=== PATIENT | female | born 1985 | race Caucasian/White ===

== ENCOUNTER 2021-08-16 12:39 | Emergency (ER) | payer OTHER, SELFPAY ==
[2021-08-16 12:49] VITALS: BP 116/70; PULSE 65; RESP 16; TEMP 37; O2SAT 99
--- NOTE | 2021-08-16 13:18 | ED.SKABFB ---
HPI - Skin/Abscess/Foreign Bdy General Chief complaint: Skin/Abscess/Foreign Body Stated complaint: pos breast infection Time Seen by Provider: 08/16/21 12:56 Source: patient and RN notes reviewed Mode of arrival: ambulatory Limitations: no limitations History of Present Illness HPI narrative: Patient presents today complaining of green/yellow discharge from the right nipple since 430 this morning. She was feeling some pressure from the nipple at that time, squeezed it and had a moderate amount of discharge coming from the nipple. She did have some release of the pressure after expression of this discharge. She does have some decreased sensation from the nipple due to breast reduction surgery and previous nipple piercings. Patient gave 2 months ago to a stillborn baby. She did not have any issues with mastitis following. History of MRSA. Related Data Home Medications Medication Instructions Recorded Confirmed Zoloft 08/16/21 folic acid 08/16/21 Allergies Allergy/AdvReac Type Severity Reaction Status Date / Time No Known Allergies Allergy Verified 08/16/21 12:57 Review of Systems Review of Systems: CONSTITUTIONAL: Denies body aches, fever, chills, or sweats. EYES: Denies visual changes, redness, or discharge. ENT: Denies rhinorrhea, congestion, sore throat, or otalgia. CARDIOVASCULAR: Denies chest pain, palpitations, or edema. RESPIRATORY: Denies cough or dyspnea. GASTROINTESTINAL: Denies abdominal pain, nausea, vomiting, or diarrhea. GENITOURINARY: Denies dysuria or hematuria. SKIN: Denies rash, itching, or wounds.+ Nipple discharge MUSCULOSKELETAL: Denies back pain, joint pain, or myalgia. NEUROLOGIC: Denies headache, numbness, tingling, or weakness. PSYCH: Denies depression or anxiety. [facility] Surgical History Surgical History (Updated 08/16/21 @ 13:21 by Whit Nelson, PRODUCTION EXPERT, ) H/O bilateral breast reduction surgery Comments At time of signature, I have reviewed and agree with nursing past medical, surgical, social and family history unless otherwise noted. Please see nursing chart for further information. There is no relevant family history pertinent to the presenting complaint Exam Narrative: GENERAL: Well-appearing, well-nourished, and in no acute distress. HEAD: Normocephalic, atraumatic. EYES: EOMI. No redness or drainage. Conjunctivae normal. ENT: Mucous membranes pink and moist. NECK: Normal AROM. CHEST: No respiratory distress. Patient's pictures on her phone show green/yellow purulent discharge from the nipple. The right nipple and areola does not appear erythematous or edematous. It is slightly tender to palpation. No induration or fluctuance noted. EXTREMITIES: Normal range of motion. No edema. SKIN: Warm, dry, no rash. Capillary refill normal. Normal skin turgor. NEURO: No focal deficits. Alert and oriented x3. Gait steady. PSYCH: Normal affect. No signs of depression or anxiety. Course Course Emergency Course: We will treat patient with broad-spectrum antibiotics to cover MRSA. Anticipatory guidance given. Vital Signs Vital signs: Vital Signs Temperature 98.6 F 08/16/21 12:49 Pulse Rate 65 08/16/21 12:49 Respiratory Rate 16 08/16/21 12:49 Blood Pressure 116/70 08/16/21 12:49 Pulse Oximetry 99 08/16/21 12:49 Temperature 98.6 F 08/16/21 12:49 Pulse Rate 65 08/16/21 12:49 Respiratory Rate 16 08/16/21 12:49 Blood Pressure 116/70 08/16/21 12:49 Pulse Oximetry 99 08/16/21 12:49 Reviewed MDM - Skin/Abscess/Foreign Bdy Differential Diagnosis Differential diagnosis: Likely abscess of skin or subcutaneous tissue and other (Mastitis) Critical Care Time Critical Care Time Critical Care Time: No Discharge Plan Discharge Clinical Impression: Discharge from right nipple Patient Disposition: Home, Self-Care Condition: Stable Instructions: Antibiotic Form Additional Instructions: Please take the clindamycin a
== END 2021-08-16 13:27 | disposition home or self-care (01) ==
PROVIDERS: Emergency Provider Nurse Practitioner
DX: N64.52 Nipple discharge (principal)
CPT/HCPCS: 99213; G0463